=== PATIENT | female | born 1990 | race Caucasian/White ===

== ENCOUNTER 2020-12-21 19:49 | Emergency (ER) | payer SELFPAY ==
[2020-12-21 21:13] VITALS: BP 147/91
--- NOTE | 2020-12-21 21:53 | XRay Report ---
Left wrist 3 views INDICATION: Left wrist pain following injury IMPRESSION: No fracture or subluxation is identified. Negative ulnar variance. Signer Name: Ron Pandya MD Signed: 12/21/2020 9:49 PM Workstation Name: [id number]
--- NOTE | 2020-12-21 23:39 | Emergency Department Report ---
Upper Extremity - HPI Chief Complaint: Extremity Injury, Upper Stated Complaint: LEFT WRIST SWOLLEN/PAIN Time Seen by Provider: 12/21/20 23:34 Upper Extremity: Left Wrist Occurred When: Today (around 4 pm) Severity: mild, moderate Symptoms: Yes Pain with Movement, Yes Limited Range of Movement, Yes Swelling, No Deformity, No Numbness, No Weakness, No Bruising/Ecchymosis Other History: 30-year-old female presents to the ER today with complaints of left wrist pain. Patient states that she was opening her work truck door when she felt a pop in her left wrist. Since then she has been having pain and swelling to the wrist. She states that the pain is worse when she makes a fist and when she rotates her wrist. She states that she has not taken anything for pain. She has not had any prior injury to her wrist in the past. ED Review of Systems ROS: Stated complaint: LEFT WRIST SWOLLEN/PAIN Other details as noted in HPI Comment: All other systems reviewed and negative Constitutional: denies: chills, fever Eyes: denies: eye pain, eye discharge, vision change ENT: denies: ear pain, throat pain, dental pain, hearing loss, epistaxis, congestion Respiratory: denies: cough, shortness of breath, wheezing Cardiovascular: denies: chest pain, palpitations Musculoskeletal: joint swelling, arthralgia ED Past Medical Hx - Past Medical History Previous Medical History?: Yes Hx Asthma: Yes - Surgical History Past Surgical History?: Yes Hx Cholecystectomy: Yes - Social History Smoking Status: Never Smoker Substance Use Type: None - Medications Home Medications: Home Medications Medication Instructions Recorded Confirmed Last Taken Type Ketorolac [Toradol] 10 mg PO Q6H PRN #20 tablet 12/21/20 Unknown Rx Upper Extremity Exam - Exam General: Vital signs noted. No distress. Alert and acting appropriately. Head and Torso: No HEENT Abnormality, No Neck Tenderness, No Chest/Lungs Abnormality Shoulder Exam: Yes Normal Range of Motion in Shoulder, No Shoulder Tenderness, No Clavicle Tenderness, No Shoulder Deformity, No AC Joint Tenderness Arm Exam: No Arm/Humerus Tenderness, No Arm Deformity Elbow: Yes Normal Range of Motion in Elbow, No Elbow Tenderness, No Elbow Deformity Forearm: No Forearm Tenderness, No Forearm Deformity, No Pain with Pronation, No Pain with Supination Wrist: Yes Wrist Tenderness (Mild tenderness to the radial and ulnar aspect of the left wrist), No Normal ROM in Wrist (Mild decrease extension, ulnar and radial deviation of the wrist due to pain), No Wrist Deformity, No Snuffbox Tenderness Hand: Yes Normal ROM in Digit(s), No Hand Tenderness, No Hand Deformity, No Digit Tenderness, No Digit(s) Deformity, No Tendon Dysfunction CMS Exam: Yes Normal Distal Pulses, Yes Normal Capillary Refill, Yes Normal Distal Sensation, No Broken Skin ED Course Vital Signs 12/21/20 21:10 Temperature 99.1 F Pulse Rate 73 Respiratory 18 Rate Blood Pressure 147/91 O2 Sat by Pulse 97 Oximetry ED Medical Decision Making - Radiology Data Radiology results: report reviewed Patient: RAJI MAURER MR#: [id number] : 1990 Acct:[id number] Age/Sex: 30 / F ADM Date: 12/21/20 Loc: ED Attending Dr: Ordering Physician: KRISHNA PRICE Date of Service: 12/21/20 Procedure(s): XR wrist 3+V LT Accession Number(s): [id number] cc: KRISHNA PRICE Fluoro Time In Minutes: Left wrist 3 views INDICATION: Left wrist pain following injury IMPRESSION: No fracture or subluxation is identified. Negative ulnar variance. Signer Name: Ron Pandya MD Signed: 12/21/2020 9:49 PM Workstation Name: [id number] Transcribed By: Dictated By: Ron Pandya MD Electronically Authenticated By: Ron Pandya MD Signed Date/Time: 12/21/202148 DD/ 47 TD/TT: Critical care attestation.: If time is entered above; I have spent that time in minutes in the direct care of this critically ill patient, excluding procedure time. ED Disposition Clinical Impression: Left wrist sprain Disposition: DC-01 TO HOME OR SELFCARE Is pt being admited?: No Does the pt Need Aspirin: No Condition: Stable Instructions: Wrist Sprain, Adult Additional Instructions: Use the Velcro wrist splint as discussed. Recommend ice, limited use of the wrist for the next 3 to 4 days. Take the Toradol as prescribed for pain. Follow-up with internet specialist in 1 week if your symptoms persist. Prescriptions: Ketorolac [Toradol] 10 mg PO Q6H PRN #20 tablet PRN Reason: Pain Referrals: CODY DICKSON MD [Staff Physician] - 7-10 days (Applications Systems Engineer) Forms: Work/School Release Form(ED) Time of Disposition: 23:39
== END 2020-12-21 23:45 | disposition home or self-care (01) ==
LOC: ED 19:49
DX: S63.592A Other specified sprain of left wrist, initial encounter (principal); J45.909 Unspecified asthma, uncomplicated; Z90.49 Acquired absence of other specified parts of digestive tract; Z79.899 Other long term (current) drug therapy; X50.1XXA Overexertion from prolonged static or awkward postures, initial encounter; Y93.89 Activity, other specified; Y92.89 Other specified places as the place of occurrence of the external cause; Y99.8 Other external cause status
CPT/HCPCS: 99283